=== PATIENT | female | born 1945 | race Caucasian/White ===

== ENCOUNTER 2022-03-28 11:00 | Outpatient (RCR) | payer MEDICARE, SELFPAY | END 2022-03-28 15:42 | disposition home or self-care (01) | LOC: HO.PT 11:00 | PROVIDERS: PCP Internal Medicine; Visit Provider Orthopaedic Surgery | DX: Z96.652 Presence of left artificial knee joint (principal) | CPT/HCPCS: 97110; 97140; 97161; 97530 ==

== ENCOUNTER 2024-05-10 07:23 | Inpatient (IN) | payer MEDICARE, SELFPAY ==
[2024-05-10] VITALS (8 sets, daily range): BP systolic 96–142; BP diastolic 43–82; PULSE 77–96; RESP 16–20; TEMP 36.4–36.8; O2SAT 98–100; BMI 46.1
--- NOTE | 2024-05-10 | ECG_ITS ---
Test Reason : CP Blood Pressure : / mmHG Vent. Rate : 081 BPM Atrial Rate : 081 BPM P-R Int : 198 ms QRS Dur : 102 ms QT Int : 382 ms P-R-T Axes : 070 -06 099 degrees QTc Int : 443 ms Sinus rhythm with frequent Premature ventricular complexes Left ventricular hypertrophy with repolarization abnormality ( R in aVL , [place] product ) Abnormal ECG When compared with ECG of 10-MAY-2024 07:27, Nonspecific T wave abnormality has replaced inverted T waves in Lateral leads Referred By: Michael Prabhakar Electronically Signed By:CARMINA FULTON
--- NOTE | ~2024-05-10 | XR_ITS ---
EXAMINATION: XR CHEST CLINICAL INFORMATION: Dyspnea COMPARISON: None available. TECHNIQUE: Frontal view of the chest was obtained. FINDINGS: Lordotic view. Cardiac and mediastinal silhouette is borderline prominent, accentuated by technique. There is mild peribronchial opacities in bilateral upper lungs. No focal consolidation is otherwise seen. Left costophrenic angle blunting may reflect small effusion. No pneumothorax is seen. XR/XR chest 1V IMPRESSION: Mild peribronchial opacities in bilateral upper lungs could reflect inflammatory infectious process. Possible small left pleural effusion. Electronically signed by: Cameron Yip MD 05/10/2024 08:17 AM EDT
--- NOTE | 2024-05-10 07:00 | CA_ITS ---
Transthoracic Echocardiogram Patient (Last, First, Middle): Melisa Horan, Gender: Female Date of : 1945 Age: 78 Procedure Date: 05/10/2024 Procedure Type: Transthoracic Echocardiogram Location: ER Height: 172.72 cm Weight: 137.44 kg BSA: 2.44 m2 Heart Rate: 88 bpm BP: 108 / 39 mmHg Quality Measurement Specialist: LIBERTY Referring MD: Michael Prabhakar MD Symptoms: CHF, Study Quality: Fair w/Contrast ECG Rhythm: PVCs Conclusions: - Mildly increased left ventricular cavity size. There is severely increased left ventricular wall thickness. The left ventricular systolic function is borderline reduced. The visually estimated ejection fraction is between 45-50%. - There is mild to moderate mitral valve regurgitation. - Moderately elevated right atrial pressure. - There is mild dilatation of the ascending aorta measuring 4.20 cm. Findings Procedure Information Contrast agent, definity, is being given per protocol without apparent complications. Left Ventricle Mildly increased left ventricular cavity size. There is severely increased left ventricular wall thickness. The left ventricular systolic function is borderline reduced. The visually estimated ejection fraction is between 45 50%. Abnormal diastolic function is noted. Elevated filling pressures. Right Ventricle Normal right ventricular cavity size. There is borderline right ventricular systolic function. Atria The left atrium is moderately dilated. The right atrium is normal in size. Aortic Valve A bioprosthetic aortic valve is present. The prosthetic aortic valve appears to be functioning abnormally. Echo findings are consistent with stenosis of the aortic valve prosthesis. May-prosthetic regurgitation is present. The peak aortic velocity is 5.00 m/s with a calculated peak gradient of 100 mmHg. The mean gradient is 71 mmHg. The aortic valve area is 0.63 cm2. There is trace (trivial) aortic valve regurgitation. Mitral Valve There is moderate mitral annular calcification. There is mild to moderate mitral valve regurgitation. There is no mitral valve stenosis. Pulmonic Valve The pulmonic valve is likely normal. There is trace pulmonic valve regurgitation. Tricuspid Valve Normal tricuspid valve structure. There is mild tricuspid valve regurgitation. Tricuspid regurgitation envelope is inadequate for calculation of right ventricular systolic pressure. Moderately elevated right atrial pressure. Great Vessels There is mild dilatation of the ascending aorta measuring 4.20 cm. The visualized portions of the pulmonary artery and branches are normal. Venous The inferior vena cava is dilated and collapses less than 50% with inspiration. Pericardium/Pleural There is no evidence of pericardial effusion. Prior Study Comparison No prior study available for comparison. Measurements 2D Linear Measurements IVSd: 1.53 0.6-0.9/0.6-1.0 cm LVIDd: 5.59 3.9-5.3/4.2-5.9 cm LVIDd Index: 2.29 2.4-3.2/2.2-3.1 cm/m2 LVIDs: 3.66 2.0-3.6 cm LVPWd: 1.41 0.7-1.1 cm LA Diam: 4.60 2.7-3.8/3.0-4.0 cm LAIDs Index: 1.89 1.5-2.3 cm/m2 LV Mass: 463.81 67-162/88-224 g LV Mass Index: 190.09 43-95/49-115 g/m2 LVOT Diam: 2.30 3.0+(-)1.3 cm 2D Systolic Function EF 4C: 39.40 >55% EF 2C: 42.50 >55% EF BiP: 40.20 >55% Mitral Valve MV Pk E: 1.01 MV PK A: 0.66 MV Decel Time: 131.00 E/A: 1.50 E'Lateral: 4.91 E'Medial: 3.50 E/E' Med: 28.90 E/E' Lat: 20.60 PHT: 39.00 MVA PHT: 5.64 Decel Johnson: 7.66 Aortic Valve AoV Pk Paresh: 5.00 AoV Mn Paresh: 3.51 AoV VTI: 1.07 AoV Pk Grad: 100.00 Aov Mn Grad: 71.00 ROSE Cont.VTI: 0.63 LVOT LVOT Pk Paresh: 0.89 LVOT Mn Paresh: 0.65 LVOT VTI: 0.23 LVOT Pk Grad: 3.00 LVOT Mn Grad: 2.00 LVOT Diam: 2.30 LVOT Area: 4.15 Diastolic Function MV Pk E: 1.01 MV Pk A: 0.66 E/A: 1.50 E'Medial: 3.50 E/E' Med: 28.90 E' Laterial: 4.91 E/E' Lat: 20.60 Right Ventricle TAPSE (mm): 22.90 TVS' Paresh: 7.32 Tricuspid Valve TR Pk Paresh: 2.58 TR Pk Grad: 27.00 Great Vessels Aorta Sinus of Valsalva: 3.60 2.0-3.5 cm Ao Asc: 4.20 2.1-3.4 cm Ao Arch: 3.20 Pulmonary Valve PV Pk Paresh: 0.92 Peak PV Grad: 3.00 Updated in Other Vendor System with Status of Final Michael Prabhakar MD electronically signed on 05/10/2024 5:39:13 PM with status of Final
--- NOTE | 2024-05-10 07:31 | ECG_ITS ---
Test Reason : CP/SOB Blood Pressure : / mmHG Vent. Rate : 087 BPM Atrial Rate : 087 BPM P-R Int : 206 ms QRS Dur : 102 ms QT Int : 368 ms P-R-T Axes : 067 -12 116 degrees QTc Int : 442 ms Sinus rhythm with occasional Premature ventricular complexes Left ventricular hypertrophy with repolarization abnormality ( R in aVL , Sokolow-Velasquez , [place] product ) Abnormal ECG When compared with ECG of 30-APR-2007 08:07, Premature ventricular complexes are now Present QRS duration has increased ST now depressed in Inferior leads ST now depressed in Lateral leads Nonspecific T wave abnormality, improved in Inferior leads T wave inversion now evident in Lateral leads Referred By: Jesika King Electronically Signed By:CARMINA FULTON
--- NOTE | 2024-05-10 07:43 | ED.CHESTPAIN ---
HPI - Chest Pain General Chief Complaint: Chest Pain Stated Complaint: BURNING CP SINCE LAST NIGHT PER EMS Time Seen by Provider: 05/10/24 07:24 Source: patient Mode of arrival: ambulatory Limitations: no limitations History of Present Illness ED Provider: RIKI RESENDIZ narrative: 78 yo female with PMH of TAVR 5 years ago at [facility] has failed, PAF afib s/p ablation x 3 on xarelto daily, CHF on furosemide now 40mg BID that was recently increased by her senior field service engineer Jonh, HTN, HLD, new dx in the last few months of liver lesions that are scheduled for biopsy at [facility]. Has had MRI done and no other primary source found per patient and family. Last ECHO per family in March EF 50-55%. She has had increased orthopnea sleeping in recliner, LEDESMA, fatigue, moderate leg swelling for 3+ months with worsening chest burning that seems to have gotten much worse for the last week. She is compliant with all medications. No cough or fever reported. This AM the burning chest pain woke her from sleep and she could not take it so she called 911. 5 years ago when she had her first TAVR cardiac cath was clear. She was told by [facility] TAVR provider that they think the first one failed due to inflammation. No plans to re-do the TAVR at this time until they find out if liver lesions are treatable and what plan is going forward. 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 complaint: chest pain Onset (ago): month(s) (3) Timing of current episode: episodic Prior episodes: Yes Onset: during rest and during exertion Pain location: substernal Pain radiation: none Severity: moderate Quality: burning Relieving factors: nothing Exacerbating factors: exertion and movement Context: other Associated symptoms: dyspnea and leg swelling Treatment prior to arrival: none Related Data Allergies Allergy/AdvReac Type Severity Reaction Status Date / Time iron Allergy Unknown rash, hives Verified 05/10/24 07:33 penicillin V Allergy Unknown evere Verified 05/10/24 08:13 diarrhea levofloxacin [Levaquin] AdvReac Unknown tendon Verified 11/21/18 00:00 pain, swelling feet and ankles Review of Systems Review of Systems: Constitutional : No Fever, No Chills ENT/Mouth : No sore throat, No Rhinorrhea, No Swallowing Difficulty Eyes: No Eye Pain, No Swelling, No Redness Cardiovascular : pos Chest Pain, positive SOB, pos Orthopnea, positive Edema Respiratory : No Cough, No Sputum, No Wheezing, positive dyspnea Gastrointestinal : pos Nausea, No Vomiting, No Diarrhea, No abdominal Pain, No Hematochezia, No Melena Genitourinary : No Dysuria, No Urinary Frequency, No Hematuria Musculoskeletal : No joint pain, No Myalgias Skin : No Skin Lesions, No rash Neuro : No Weakness, No Numbness, No Dizziness, No Headache Psych : No Anxiety/Panic, No Depression All other systems reviewed and are negative [facility] Past Medical History Attestation statement: The following information was validated with the patient. Medical History Liver lesion Hyperlipidemia HTN (hypertension) CHF (congestive heart failure) PAF (paroxysmal atrial fibrillation) Aortic stenosis Surgical History S/P TAVR (transcatheter aortic valve replacement) Social History Social History (Updated 05/10/24 @ 08:12 by Jesika King DO) Patient Tobacco Use Status: Never used Tobacco Physical Exam Vital Signs: Vital Signs: Last Vital Signs Pulse 91 05/10/24 09:39 Resp 16 05/10/24 09:39 BP 109/49 L 05/10/24 09:39 Pulse Ox 98 05/10/24 09:39 O2 Del Method Nasal Cannula 05/10/24 09:39 O2 Flow Rate 2 05/10/24 09:39 BMI result Body Mass Index 46.1 Appearance: Alert. Oriented X3. No acute distress. Eyes: Pupils equal, round and reactive to light. ENT: Pharynx normal. Neck: Normal inspection. Neck supple. CVS: Normal heart rate and rhythm. Pulses normal. Respiratory: No respiratory distress. Breath sounds rales both bases Abdomen: Soft and nontender. Skin: Skin warm and dry. pale skin color. Normal skin turgor. Extremities: 2+ bilateral symmetric lower extremity edema. Neuro: Oriented X 3. No motor deficit. No sensory deficit. Course Course Course Narrative: pain resolved after medications Reevaluation(s) Reevaluation #1: IV lasix 40mg, hold lisinopril, repeat troponin admit Aki Reevaluation #2: repeat trop flat Medications Administered Discontinued Medications Generic Name Dose Route Start Last Admin Trade Name Christie PRN Reason Stop Dose Admin Famotidine 20 mg 05/10/24 07:59 05/10/24 08:16 Famotidine/Pf 20 Mg/2 Ml Vial IVPUSH 05/10/24 08:00 20 mg ONCE ONE Administration Fentanyl 25 mcg 05/10/24 07:59 05/10/24 08:15 Fentanyl Citrate/Pf 100 Mcg/2 Ml Vial IVPUSH 05/10/24 08:00 25 mcg ONCE ONE Administration Protocol Furosemide 40 mg 05/10/24 09:14 05/10/24 09:37 Furosemide 40 Mg/4 Ml Vial IVPUSH 05/10/24 09:15 40 mg STAT STA Administration Protocol Ondansetron HCl 4 mg 05/10/24 07:59 05/10/24 08:13 Ondansetron Hcl 4 Mg/2 Ml Vial IVPUSH 05/10/24 08:00 4 mg ONCE ONE Administration Medical Decision Making Medical Decision Making [facility] Narrative: 78 yo female with PMH of TAVR 5 years ago at [facility] has failed, PAF afib s/p ablation x 3 on xarelto daily, CHF on furosemide now 40mg BID that was recently increased by her senior field service engineer Jonh, HTN, HLD, new dx in the last few months of liver lesions now here today with burning epigastric and chest pain with associated leg edema, orthopnea, LEDESMA with a known failing TAVR that cannot be surgically treated. She is compliant with all of her medications and has not missed any lasix or xarelto. At this time will need EKG, troponin, BNP, CXR, records from [place] will start on pepcid, IV zofran and low dose fentanyl for pain - pressures are slightly soft and given the failed TAVR will hold off nitro. Differential Diagnosis Differential Diagnoses: The differential diagnosis associated with the presentation includes CHF GERD atypical chest pain hepatic congestion Admission/Observation Consideration of admission/observation: Escalation of care including admission/observation considered Lab Data [facility] Lab Attestation statement: I reviewed the patient's lab results. 05/10/24 07:45 05/10/24 07:45 Labs: Lab Results 0805/10/24 05/10/24 Range/Units 07:45 07:54 09:44 WBC 13.2 H (4.8-10.8) X10*3/uL RBC 3.74 L (4.20-5.50) X10*6/uL Hgb 10.9 L (12.0-16.0) g/dl Hct 34.6 L (37.0-47.0) % MCV 92.5 (80.0-98.0) fL MCH 29.1 (27.0-33.0) pg MCHC 31.5 (31.0-35.0) g/dl RDW 14.7 (11.0-16.0) % Plt Count 126 L (160-400) X10*3/uL MPV 11.8 (9.4-12.3) fL Immature Gran % (Auto) 0.4 (0.0-0.4) % Neut % (Auto) 74.3 H (45-73) % Lymph % (Auto) 16.6 L (20-40) % [place] % (Auto) 8.1 (2-11) % Eos % (Auto) 0.3 (0-4) % Baso % (Auto) 0.3 (0-2) % Lymph # (Auto) 2.2 (1.2-4.9) X10*3/uL [place] # (Auto) 1.1 (0.1-1.2) X10*3/uL Eos # (Auto) 0.0 (0.0-0.4) X10*3/uL Baso # (Auto) 0.0 (0.0-0.2) X10*3/uL Abs Immat Gran (auto) 0.05 H (0.00-0.03) X10*3/uL Absolute Neuts (auto) 9.8 H (2.0-8.3) x10*3/uL Absolute Nucleated RBC 0.000 (0.0-0.012) X10*3/uL Nucleated RBC % (auto) 0.0 (0.0-0.2) /100WBC PT 22.9 H (11.1-13.3) SEC INR 1.9 H (0.9-1.1) Sodium 141 (135-145) mmol/L Potassium 4.4 (3.3-5.1) mmol/L Chloride 108 (96-108) mmol/L Carbon Dioxide 21 L (22-29) mmol/L Anion Gap 16 (12-20) BUN 61 H (9-16) mg/dL Creatinine 2.28 H (0.5-1.4) mg/dL Estim Creat Clear Calc 30.4 Estimated GFR 21 Random Glucose 149 H (60-115) mg/dL Calcium 9.9 (8.4-10.2) mg/dL Magnesium 2.3 (1.6-2.6) mg/dL Total Bilirubin 0.7 (0.0-1.0) mg/dL Direct Bilirubin 0.2 (0.0-0.5) mg/dL AST 29 (5-31) U/L ALT 11 (0-31) U/L Alkaline Phosphatase 114 (39-117) U/L Troponin I High Sens 161.2 H* 165.1 H* (<3.5-17.0) ng/L B-Natriuretic Peptide 2801 H (<100) pg/mL Total Protein 6.9 (6.5-8.0) g/dL Albumin 3.7 (3.5-5.0) g/dL Lipase 20 (8-78) U/L Influenza Type A (PCR) NEGATIVE (Negative) Influenza Type B (PCR) NEGATIVE (Negative) RSV RNA Qual (PCR) NEGATIVE (Negative) SARS-CoV-2 RNA (RT-PCR) NEGATIVE (Negative) Independent Interpretation I performed an independent interpretation of an: EKG and Plain X-Ray Interpretation: Rate: 87 Rhythm: NSR 1st degree AVB [place]: left Normal P waves. 1st degree AVB Normal QRS complex. ST T wave : inverted I and aVL, slight ST depressions II, V4-V6 qTC: 442 prior studies: 2007 LVH noted with strain now, ST depressions lateral leads more evident The study has been interpreted contemporaneously by me. . Radiology Impression Discussion of test interpretation with radiology: I have reviewed the radiologist's reading. Independent Historian Clinical information obtained from an independent historian. History obtained from or confirmed by: EMS and Other (family) External Record Review External record reviewed: Outpatient record Discharge Plan Discharge Clinical Impression: VIOLET (acute kidney injury) Chest pain Qualifiers: Chest pain type: precordial pain Qualified Code(s): R07.2 - Precordial pain CHF (congestive heart failure) Qualifiers: Heart failure type: systolic Heart failure chronicity: acute on chronic Qualified Code(s): I50.23 - Acute on chronic systolic (congestive) heart failure Patient Disposition: Admitted As Inpatient Print Language: [place]an
[2024-05-10 07:50] LABS: MANUAL DIFF FLAG NO
[2024-05-10 07:53] LABS: Basophils Percent Auto 0.3 % (0-2); Eosinophils Percent Auto 0.3 % (0-4); Hematocrit 34.6 % (37.0-47.0); Hemoglobin 10.9 g/dl (12.0-16.0); Imm Gran Abs Auto 0.05 X10*3/uL (0.00-0.03); Imm Gran Pct Auto 0.4 % (0.0-0.4); Lymphocytes Absolute Auto 2.2 X10*3/uL (1.2-4.9); Lymphocytes Percent Auto 16.6 % (20-40); Mean Corpuscular HGB Conc 31.5 g/dl (31.0-35.0); Mean Corpuscular Hemoglobin 29.1 pg (27.0-33.0); Mean Corpuscular Volume 92.5 fL (80.0-98.0); Mean Platelet Volume 11.8 fL (9.4-12.3); Monocytes Absolute Auto 1.1 X10*3/uL (0.1-1.2); Monocytes Percent Auto 8.1 % (2-11); Neutrophils Absolute Auto 9.8 x10*3/uL (2.0-8.3); Neutrophils Percent Auto 74.3 % (45-73); Platelet Count 126 X10*3/uL (160-400); Red Blood Count 3.74 X10*6/uL (4.20-5.50); Red Cell Distribution Width 14.7 % (11.0-16.0); White Blood Count 13.2 X10*3/uL (4.8-10.8)
[2024-05-10 07:59] LABS: INTERNATIONAL NORM RATIO 1.9 (0.9-1.1); Prothrombin Time 22.9 SEC (11.1-13.3)
[2024-05-10 08:11] LABS: Alanine Aminotransferase 11 U/L (0-31); Albumin Level 3.7 g/dL (3.5-5.0); Alkaline Phosphatase 114 U/L (39-117); Anion Gap 16 (12-20); Aspartate Amino Transferase 29 U/L (5-31); Bilirubin Direct 0.2 mg/dL (0.0-0.5); Bilirubin Total 0.7 mg/dL (0.0-1.0); Blood Urea Nitrogen 61 mg/dL (9-16); Calcium 9.9 mg/dL (8.4-10.2); Carbon Dioxide 21 mmol/L (22-29); Chloride 108 mmol/L (96-108); Creatinine Clr Calc Pharmacy 30.4; Estimated Glomerular Filt Rate 21; Glucose Random 149 mg/dL (60-115); Lipase 20 U/L (8-78); Magnesium 2.3 mg/dL (1.6-2.6); Potassium 4.4 mmol/L (3.3-5.1); Sodium 141 mmol/L (135-145); Total Protein 6.9 g/dL (6.5-8.0)
[2024-05-10] MEDS: ondansetron HCL 4 MG/2 ML VIAL IVPUSH (08:13)
[2024-05-10] MEDS: fentaNYL citrate/PF 100 MCG/2 ML VIAL 25 MCG IVPUSH (08:15)
[2024-05-10] MEDS: Famotidine/PF 20 MG/2 ML VIAL IVPUSH (08:16)
[2024-05-10 08:17] LABS: B Type Natriuretic Peptide 2801 pg/mL (<100)
[2024-05-10 08:38] LABS: Troponin-I High Sensitivity 161.2 ng/L (<3.5-17.0)
[2024-05-10 08:48] LABS: Influenza A PCR NEGATIVE (Negative); Influenza B PCR NEGATIVE (Negative); Resp Syncy Virus RNA Qual PCR NEGATIVE (Negative); SARS COV2 PCR INHOUSE NEGATIVE (Negative)
[2024-05-10] MEDS: Furosemide 40 MG/4 ML VIAL IVPUSH (09:37)
[2024-05-10 10:20] LABS: Troponin-I High Sensitivity 165.1 ng/L (<3.5-17.0)
--- NOTE | 2024-05-10 10:34 | P.CONCA_ITS ---
History of Present Illness History of Present Illness Date of Service: 05/10/24 Requesting physician: Jesika King Chief complaint: Burning CP, SOB Narrative: [age] year female with complex history in the past with previous transcatheter aortic valve replacement at [facility] in 2018 for aortic valve stenosis. We currently do not have any records and this is all by patient's report. More recently she has been developing valve degeneration and dysfunction and was sent back to [facility]. She has been following with Dr. Jessica. She said she had workup started for LV and valve TAVR but apparently had abdominal CT scan which picked up some liver lesions. She was due to get biopsy on this coming Sunday. She said she has been progressively more short of breath and also discuss this with her land checker Dr. Borja who advised her to increase the Lasix to 40 mg twice a day. Despite doing that she continued to have worsening shortness of breath and also developed some burning chest discomfort last evening which brought her to the emergency department. She continues to have some burning discomfort in the chest. She said before her 1st valve procedure she had chest discomfort which was different from this but that was the main reason she had further workup done and valve replaced. Clearly in heart failure. Creatinine is 2.28 with BUN of 61. She is saying she did not have any kidney abnormalities previously. Troponin I 165 and 161. BNP 2801. [facility] Past Medical History Medical History Liver lesion Hyperlipidemia HTN (hypertension) CHF (congestive heart failure) PAF (paroxysmal atrial fibrillation) Aortic stenosis Surgical History Surgical History S/P TAVR (transcatheter aortic valve replacement) Social History Social History (Updated 05/10/24 @ 08:12 by Jesika King DO) Patient Tobacco Use Status: Never used Tobacco Smoked in Last 30 Days: No Use of substances other than those prescribed or required for medical reasons: No Advance Directives: Yes Advance Directives Information Provided: Yes Advance Directives on File: No Meds Allergies Allergy/AdvReac Type Severity Reaction Status Date / Time iron Allergy Unknown rash, hives Verified 05/10/24 07:33 penicillin V Allergy Unknown evere Verified 05/10/24 08:13 diarrhea levofloxacin [Levaquin] AdvReac Unknown tendon Verified 11/21/18 00:00 pain, swelling feet and ankles Physical Exam 2 Vital Signs: Vital Signs: Last Vital Signs Pulse 91 05/10/24 09:39 Resp 16 05/10/24 09:39 BP 109/49 L 05/10/24 09:39 Pulse Ox 98 05/10/24 09:39 O2 Del Method Nasal Cannula 05/10/24 09:39 O2 Flow Rate 2 05/10/24 09:39 BMI result Body Mass Index 46.1 GENERAL APPEARANCE: Short of breath with talking. NECK: no carotid bruit, + jugular venous distention. SKIN: no suspicious lesions, warm and dry. HEART: Ejection systolic murmur no 2nd heart sound, regular rate and rhythm. LUNGS: Bilateral crackles. ABDOMEN: soft, nontender. EXTREMITIES: 1 to 2+ edema. PERIPHERAL PULSES: equal. NEUROLOGIC: No gross deficits, AAO X 3 Objective Labs and Meds 05/10/24 07:45 05/10/24 07:45 Lab results: Laboratory Results - last 24 hr 05/10/24 05/10/24 05/10/24 07:45 07:54 09:44 WBC 13.2 H RBC 3.74 L Hgb 10.9 L Hct 34.6 L MCV 92.5 MCH 29.1 MCHC 31.5 RDW 14.7 Plt Count 126 L MPV 11.8 Immature Gran % (Auto) 0.4 Neut % (Auto) 74.3 H Lymph % (Auto) 16.6 L [place] % (Auto) 8.1 Eos % (Auto) 0.3 Baso % (Auto) 0.3 Lymph # (Auto) 2.2 [place] # (Auto) 1.1 Eos # (Auto) 0.0 Baso # (Auto) 0.0 Abs Immat Gran (auto) 0.05 H Absolute Neuts (auto) 9.8 H Absolute Nucleated RBC 0.000 Nucleated RBC % (auto) 0.0 PT 22.9 H INR 1.9 H Sodium 141 Potassium 4.4 Chloride 108 Carbon Dioxide 21 L Anion Gap 16 BUN 61 H Creatinine 2.28 H Estim Creat Clear Calc 30.4 Estimated GFR 21 Random Glucose 149 H Calcium 9.9 Magnesium 2.3 Total Bilirubin 0.7 Direct Bilirubin 0.2 AST 29 ALT 11 Alkaline Phosphatase 114 Troponin I High Sens 161.2 H* 165.1 H* B-Natriuretic Peptide 2801 H Total Protein 6.9 Albumin 3.7 Lipase 20 Influenza Type A (PCR) NEGATIVE Influenza Type B (PCR) NEGATIVE RSV RNA Qual (PCR) NEGATIVE SARS-CoV-2 RNA (RT-PCR) NEGATIVE Imaging Radiologist's impression: Impressions Chest X-Ray 05/10/24 07:36 IMPRESSION: Mild peribronchial opacities in bilateral upper lungs could reflect inflammatory infectious process. Possible small left pleural effusion. Electronically signed by: Cameron Yip MD 05/10/2024 08:17 AM EDT RP Assessment and Plan (1) CHF (congestive heart failure): Qualifiers: Heart failure chronicity: acute on chronic Heart failure type: systolic Qualified Code(s): I50.23 - Acute on chronic systolic (congestive) heart failure Status: Acute (2) Prosthetic aortic valve stenosis: Status: Acute (3) VIOLET (acute kidney injury): Status: Acute Plan 78-year-old female presenting for shortness of breath and indigestion like chest discomfort. EKGs showing sinus rhythm 87 beats per minute, left ventricular hypertrophy with QRS widening and lateral ST depressions likely due to strain versus ischemia. She has known transcatheter aortic valve placement in the past and currently has valve degeneration and is being considered for valve and valve TAVR at [facility]. She was diagnosed with liver lesions and was told that till she gets biopsy she will not be considered for further workup/replacement of valve. She is here clearly with congestive heart failure. Volume overloaded and I think we should diurese her with 40 mg IV b.i.d. Lasix. Stop the lisinopril. Adjust medications based on creatinine clearance. She has VIOLET currently which can be due to cardiorenal physiology but we need to see how she responds to diuresis. The patient was told at [facility] that she has biopsy she will not be consider for any valve replacement. I think transferring her to [facility] may not change urgent management currently. I would diurese and optimize her for heart failure and then we can have reassessment at [facility]. She also is due to get a biopsy on Sunday which will depend on how quickly she recovers from this issue because she will have to lay flat for the procedure. This is also supposed to happen in [place]. Thank you for allowing me to participate in the care of your patient. Please feel free to contact me if you have any questions. Procedures Date of Service Date of Service: 05/10/24
--- NOTE | 2024-05-10 11:21 | P.HPHOSP_ITS ---
History of Present Illness Date of Service: 05/10/24 Attending physician on admission: Ruben Hinkle Chief Complaint: SOB, chest pain Pt is a 78-year-old female with a PMH significant for?HFpEF EF 50-55%, TAVR 5 years ago at [facility] and [facility] now failing, paroxysmal AFib s/p ablation x3 on Xarelto, HLD, HTN, and GERD who presents to the ED for evaluation of substernal burning chest pain that woker her from sleep this morning. Pt reports she has been experiencing symptoms intermittently for the past week, relieved by Pepto-Bismol. Patient describes the pain has sharp and burning in nature, substernal, and nonradiating. Denies chest pressure or palpitations. No nausea, vomiting, or abdominal pain. Patient also reports has been experiencing progressive shortness a breath and lower leg edema since December of this year. Normally ambulates in her home without assistance though uses a cane when she goes out. However patient reports most recent time she went out she needed to be transported with a wheelchair. Recently her person investigator Dr. Borja increased her Lasix from 40 mg daily to 40 mg b.i.d., but patient has received no relief this medication change. Also endorses dry cough. Of note, patient is currently undergoing workup at [facility] for TAVR replacement. Apparently routine CT scan of abdomen and pelvis found liver lesions, and patient is set to receive a liver biopsy at [facility] on Sunday of next week. Cardiology is requesting liver lesion biopsy and workup prior to scheduling TAVR. Per patient, last echo was done in March and showed EF of 50- 55%. In the ED pt with elevated heart rate of 91, and soft BP as low as 106/51. Labs were significant for leukocytosis 13.2, H&H 10.9/34.6, BUN 61, creatinine 2.28, initial troponin 161.2 with repeat flat and 165.1, and BNP 2801. Tested negative for flu, COVID, RSV. CXR showed mild peribronchial opacities in bilateral upper lungs possibly inflammatory versus infectious process as well as small left pleural effusion. Initial EKG demonstrated sinus rhythm with occasional PVCs and slight ST depressions in lateral and inferior leads. Repeat EKG with improved ST depressions. Pt was treated with ondansetron, fentanyl, Protonix, and furosemide. Pt will be admitted to the hospital for treatment and further evaluation of acute HFpEF exacerbation. Review of Systems 2 Review of Systems: Intermittent substernal sharp, burning chest pain Shortness a breath, LEDESMA LLE Non-productive cough No chest pressure Denies fever, chills, nausea, vomiting No abdominal pain PMFSH Medical History Liver lesion Hyperlipidemia HTN (hypertension) CHF (congestive heart failure) PAF (paroxysmal atrial fibrillation) Aortic stenosis Surgical History S/P TAVR (transcatheter aortic valve replacement) Social History Patient Tobacco Use Status: Never used Tobacco Smoked in Last 30 Days: No Use of substances other than those prescribed or required for medical reasons: No Advance Directives: Yes Advance Directives Information Provided: Yes Advance Directives on File: No Nutrition Risks: No Nutritional Risk Meds Allergies Allergy/AdvReac Type Severity Reaction Status Date / Time iron Allergy Unknown rash, hives Verified 05/10/24 07:33 penicillin V Allergy Unknown evere Verified 05/10/24 08:13 diarrhea levofloxacin [Levaquin] AdvReac Unknown tendon Verified 11/21/18 00:00 pain, swelling feet and ankles Home Medications ?Medication ?Instructions ?Recorded ?Confirmed ?Last Taken ?Type acetaminophen 325 mg tablet 650 mg PO Q6H PRN Pain 05/10/24 05/10/24 Unknown History (Tylenol) atorvastatin 40 mg tablet 40 mg PO DAILY 05/10/24 05/10/24 05/09/24 History bismuth subsalicylate 525 mg/15 mL 525 mg PO Q30M PRN Stomach Upset 05/10/24 05/10/24 Unknown History oral suspension (Pepto-Bismol Max St) cholecalciferol (vitamin D3) 25 25 mcg PO DAILY 05/10/24 05/10/24 05/09/24 History mcg (1,000 unit) tablet (Vitamin D3) cyanocobalamin (vitamin B-12) 1,000 mcg PO DAILY 05/10/24 05/10/24 05/09/24 History 1,000 mcg tablet furosemide 20 mg tablet 40 mg PO BID 05/10/24 05/10/24 05/09/24 History lisinopril 40 mg tablet 40 mg PO DAILY 05/10/24 05/10/24 05/09/24 History metoprolol tartrate 25 mg tablet 25 mg PO BEDTIME 05/10/24 05/10/24 05/09/24 History metoprolol tartrate 25 mg tablet 50 mg PO DAILY 05/10/24 05/10/24 05/09/24 History ondansetron 4 mg disintegrating 4 mg PO Q8H PRN nausea 05/10/24 05/10/24 Unknown History tablet rivaroxaban 20 mg tablet (Xarelto) 20 mg PO DAILY@1700 05/10/24 05/10/24 05/09/24 History vit C 250 mg-vit E 90 mg-zinc 40 1 tab PO BID 05/10/24 05/10/24 05/09/24 History mg-copper 1 [id number] capsule (PreserVision AREDS-2) Physical Exam 2 Vital Signs and Narrative: Vital Signs: Last Vital Signs Pulse 91 05/10/24 09:39 Resp 16 05/10/24 09:39 BP 109/49 L 05/10/24 09:39 Pulse Ox 98 05/10/24 09:39 O2 Del Method Nasal Cannula 05/10/24 09:39 O2 Flow Rate 2 05/10/24 09:39 BMI result Body Mass Index 46.1 Constitutional: Alert, in no acute distress. Mental Status: Oriented to person, place and time. Eyes: Pupils are equal, round, and reactive to light. Ear, Nose, and Throat: Oropharynx clear, mucous membranes moist. Ears and nose without deformities. Trachea midline. Respiratory: Clear to auscultation bilaterally. No wheezing, rales, or rhonchi. Cardiovascular: S1, no S2. Regular rate and rhythm. Murmur. Gastrointestinal: Abdomen soft, non-tender, non-distended. Normal bowel sounds. +JVD. Neurologic: Cranial nerves II-XII are grossly intact bilaterally. No focal neurological deficits. Moves all extremities spontaneously. Skin: Warm, dry. Extremities: 2+ bilateral pitting edema. Psychiatric: Normal mood and affect. Results Labs 05/11/24 04:46 05/11/24 04:46 Labs: Laboratory Results - last 24 hr 05/10/24 05/10/24 05/10/24 07:45 07:54 09:44 MCV 92.5 MCH 29.1 MCHC 31.5 RDW 14.7 Plt Count 126 L MPV 11.8 Immature Gran % (Auto) 0.4 Neut % (Auto) 74.3 H Lymph % (Auto) 16.6 L Grainger % (Auto) 8.1 Eos % (Auto) 0.3 Baso % (Auto) 0.3 Lymph # (Auto) 2.2 Grainger # (Auto) 1.1 Eos # (Auto) 0.0 Baso # (Auto) 0.0 Abs Immat Gran (auto) 0.05 H Absolute Neuts (auto) 9.8 H Absolute Nucleated RBC 0.000 Nucleated RBC % (auto) 0.0 PT 22.9 H INR 1.9 H Anion Gap 16 Estim Creat Clear Calc 30.4 Estimated GFR 21 Random Glucose 149 H Calcium 9.9 Magnesium 2.3 Total Bilirubin 0.7 Direct Bilirubin 0.2 AST 29 ALT 11 Alkaline Phosphatase 114 Troponin I High Sens 161.2 H* 165.1 H* B-Natriuretic Peptide 2801 H Total Protein 6.9 Albumin 3.7 Lipase 20 Influenza Type A (PCR) NEGATIVE Influenza Type B (PCR) NEGATIVE RSV RNA Qual (PCR) NEGATIVE SARS-CoV-2 RNA (RT-PCR) NEGATIVE Imaging Radiologist's Impressions: Impressions Chest X-Ray 05/10/24 07:36 IMPRESSION: Mild peribronchial opacities in bilateral upper lungs could reflect inflammatory infectious process. Possible small left pleural effusion. Electronically signed by: Cameron Yip MD 05/10/2024 08:17 AM EDT Assessment and Plan (1) CHF (congestive heart failure): Qualifiers: Heart failure chronicity: acute on chronic Heart failure type: systolic Qualified Code(s): I50.23 - Acute on chronic systolic (congestive) heart failure Status: Acute Plan Pt is a 78-year-old female with a PMH significant for?HFpEF EF 50-55%, TAVR 5 years ago at [facility] now failing, paroxysmal AFib s/p ablation x3 on Xarelto, HLD, HTN, and GERD who presents to the ED for evaluation of substernal burning chest pain that woker her from sleep this morning. Pt was treated with ondansetron, fentanyl, Protonix, and furosemide. Pt will be admitted to the hospital for treatment and further evaluation of acute HFpEF exacerbation. HFpEF with acute decompensation Pt with increased SOB, LEDESMA, LLE, elevated BNP, pleural effusions on CXR, JVD Recently increased home Lasix to 40 mg b.i.d. to no effect Lasix 40 mg IV b.i.d. Follow Mag chante, I/O Daily weights, low-salt diet Echocardiogram Cardiology consult Monitor on telemetry VIOLET Creatinine 2.28 at time of presentation Likely cardiorenal Hold lisinopril Treat as above Follow renal function Elevated troponins Initial troponin 161.2 with repeat flat at 165.[address] depressions in lateral leads Patient denies chest pressure Most likely type 2 in the setting of increased demand Monitor on telemetry Chest pain Substernal, sharp and burning in nature, intermittent x1 week Initially relieved by Pepto-Bismol Pt given Protonix IV in the ED Will switch to p.o. famotidine 20mg bid HTN Hold lisinopril due to soft BP and VIOLET Leukocytosis WBCs 13.2 at time of presentation Likely reactionary, no sepsis No clear source of infection: Denies productive cough, no fever, chills, N/V/D or abd pain Follow CBC Paroxysmal AFib Continue metoprolol, Xarelto HLD Continue statin Liver lesions Scheduled for biopsy at [facility] in [place] on Sunday Aortic stenosis s/p TAVR in 2018 that has since failed Being worked up at [facility] for possible replacement DNR/DNI, verified with pt Attending:?Dr. Hinkle DVT Prophylaxis: On Xarelto Pt will require a hospitalization of at least two nights for treatment and further evaluation of acute CHF exacerbation that will require aggressive IV diuresing, close monitoring of labs and cardiac function, and specialist consultation with Cardiology. Quality Stroke Does the patient have a stroke diagnosis?: No VTE Prior VTE?: No VTE Risk Level:: Medical - moderate - high VTE Device Contraindication: Treatment Not Indicated VTE Drug Contraindication: N/A - Med Ordered
--- NOTE | 2024-05-10 11:45 | PC.NURSE ---
pt to ED from Home. reporting on and off epigastric chest pain, non radiating for about 1 week. pt has been taking pepto at home with relief, but today she said the pain woke her up and is not relieved by pepto or tums. pt has an replaced aortic valve and she says that is failing and she needs a new one. Pt is short of breath, satts good high 90s but pt feels like she cant get a good breath in 20g IV left AC. medicated per NOV.
--- NOTE | 2024-05-10 12:02 | PHA.MEDREC ---
Addendum entered by Xiao Fisher RPh 05/10/24 12:48: [facility] reviewed Original Note: Pharmacy Consult ? Medication Reconciliation Pharmacy has completed the medication reconciliation.
[2024-05-10] MEDS: Cholecalciferol (Vitamin D3) 25 MCG TABLET PO (14:26)
[2024-05-10] MEDS: Cyanocobalamin (Vitamin B-12) 1,000 MCG TABLET 1000 MCG PO (14:26)
--- NOTE | 2024-05-10 17:11 | PC.NURSE ---
Patient's Xarelto not stocked in pyxis, pharmacy called will send down dose.
[2024-05-10] MEDS: Rivaroxaban 15 MG TABLET PO (17:19)
[2024-05-10] MEDS: 0.9 % Sodium Chloride Flush 3 ML SYRINGE IVFLUSH (17:19)
--- NOTE | 2024-05-10 18:12 | PC.NURSE ---
pts coccyx area red. one small area on right buttocks has red abrasion, not bleeding but open. about 1/2 cm wide
--- NOTE | 2024-05-10 18:25 | PC.NURSE ---
per SUYAPA Lares, hold lasix. Also verbal order to hold tonights metoprolol.
--- NOTE | 2024-05-10 20:02 | MHC.EDTECH ---
This tech took over care of patient at 1900,hourly rounds and vitals completed,patient was placed in hospital at this time for comfort,family at bedside and call restrepo in reach
[2024-05-10] MEDS: Famotidine 20 MG TABLET PO (20:13)
[2024-05-10] MEDS: Melatonin 3 MG TABLET 6 MG PO (21:21)
--- NOTE | 2024-05-10 22:21 | MHC.EDTECH ---
Hourly rounds completed,patient was incont. of a large amount of urine,koffi-care given,new pure-wick applied,draining at this time,call restrepo in reach
[2024-05-11] VITALS (23 sets, daily range): BP systolic 72–108; BP diastolic 37–71; PULSE 68–100; RESP 16–24; TEMP 36.4–37.2; O2SAT 93–98
[2024-05-11] MEDS: Acetaminophen 325 MG TABLET 650 MG PO (02:58)
[2024-05-11 04:57] LABS: Hemoglobin 9.8 g/dl (12.0-16.0); Mean Corpuscular HGB Conc 30.6 g/dl (31.0-35.0); Mean Corpuscular Hemoglobin 28.4 pg (27.0-33.0); Mean Corpuscular Volume 92.8 fL (80.0-98.0); Mean Platelet Volume 11.9 fL (9.4-12.3); Platelet Count 113 X10*3/uL (160-400); Red Blood Count 3.45 X10*6/uL (4.20-5.50); Red Cell Distribution Width 14.8 % (11.0-16.0); White Blood Count 11.7 X10*3/uL (4.8-10.8)
[2024-05-11 05:18] LABS: Anion Gap 17 (12-20); Blood Urea Nitrogen 59 mg/dL (9-16); Calcium 9.4 mg/dL (8.4-10.2); Carbon Dioxide 22 mmol/L (22-29); Chloride 108 mmol/L (96-108); Estimated Glomerular Filt Rate 29; Glucose Random 112 mg/dL (60-115); Magnesium 2.3 mg/dL (1.6-2.6); Potassium 4.9 mmol/L (3.3-5.1); Sodium 142 mmol/L (135-145)
[2024-05-11] MEDS: Metoprolol Tartrate 50 MG TABLET PO (09:07)
[2024-05-11] MEDS: Cholecalciferol (Vitamin D3) 25 MCG TABLET PO (09:07)
[2024-05-11] MEDS: Furosemide 40 MG/4 ML VIAL IVPUSH (09:08)
[2024-05-11] MEDS: Atorvastatin Calcium 40 MG TABLET PO (09:08)
[2024-05-11] MEDS: Cyanocobalamin (Vitamin B-12) 1,000 MCG TABLET 1000 MCG PO (09:08)
[2024-05-11] MEDS: Famotidine 20 MG TABLET PO ×2 (09:08→18:02)
--- NOTE | 2024-05-11 09:26 | HO.PM.IMPN ---
Subjective Subjective Date of Service: 05/11/24 Interval History: Still quite short of breath with orthopnea. No chest pain. Review of Systems Review of Systems: Yes all other systems are reviewed and are negative Physical Exam Vital Signs: Vital Signs: Last Vital Signs Temp 98.2 F 05/10/24 19:54 Pulse 83 05/11/24 09:07 Resp 18 05/10/24 19:54 BP 108/66 05/11/24 09:08 Pulse Ox 98 05/10/24 19:54 O2 Del Method Nasal Cannula 05/10/24 19:54 O2 Flow Rate 2 05/10/24 19:54 BMI result Body Mass Index 46.1 Gen: slightly tachypneic HEENT: sclera anicteric, moist mucus membranes Neck: supple, JVD present Lungs: diminished bilaterally Heart: regular rate and rhythm, 2/6 murmur at base Abd: soft, non-tender, non-distended, obese Ext: 1+ BLE edema Skin: warm/well-perfused Neuro: alert and oriented x3, no focal findings Psych: appropriate affect Objective Data Active Medications Acetaminophen (Acetaminophen 325 Mg Tablet) 650 mg PO Q6H PRN PRN Reason: Pain, Mild (Pain Scale 1-3), fever or headache Last Admin: 05/11/24 02:58 Dose: 650 mg Documented By: SANDRA Atorvastatin Calcium (Atorvastatin Calcium 40 Mg Tablet) 40 mg PO DAILY [facility] Last Admin: 05/11/24 09:08 Dose: 40 mg Documented By: YA Benzonatate (Benzonatate 100 Mg Capsule) 100 mg PO TID PRN PRN Reason: Cough Calcium Carbonate (Calcium Carbonate 750 Mg Tab.Chew) 750 mg PO Q4H PRN PRN Reason: Heartburn Cyanocobalamin (Cyanocobalamin (Vitamin B-12) 1,000 Mcg Tablet) 1,000 mcg PO DAILY [facility] Last Admin: 05/11/24 09:08 Dose: 1,000 mcg Documented By: YA Famotidine (Famotidine 20 Mg Tablet) 20 mg PO BID [facility] Last Admin: 05/11/24 09:08 Dose: 20 mg Documented By: YA Furosemide (Furosemide 40 Mg/4 Ml Vial) 40 mg IVPUSH BID@0900,1800 [facility]; Protocol Last Admin: 05/11/24 09:08 Dose: 40 mg Documented By: YA Magnesium Hydroxide (Milk Of Magnesia 30 Ml Oral.Susp) 30 ml PO DAILY PRN PRN Reason: Constipation Melatonin (Melatonin 3 Mg Tablet) 6 mg PO BEDTIME PRN PRN Reason: Insomnia Last Admin: 05/10/24 21:21 Dose: 6 mg Documented By: SANDRA Metoprolol Tartrate (Metoprolol Tartrate 25 Mg Tablet) 25 mg PO BEDTIME [facility]; Protocol Last Admin: 05/10/24 20:13 Dose: Not Given Documented By: SANDRA Non-Admin Reason: Physician Held Med Metoprolol Tartrate (Metoprolol Tartrate 50 Mg Tablet) 50 mg PO DAILY [facility]; Protocol Last Admin: 05/11/24 09:07 Dose: 50 mg Documented By: YA Ondansetron HCl (Ondansetron Hcl 4 Mg/2 Ml Vial) 4 mg IVPUSH Q8H PRN PRN Reason: Nausea and Vomiting Rivaroxaban (Rivaroxaban 15 Mg Tablet) 15 mg PO DAILY@1700 [facility] Last Admin: 05/10/24 17:19 Dose: 15 mg Documented By: JOON Sodium Chloride (0.9 % Sodium Chloride Flush 3 Ml Syringe) 3 ml IVFLUSH QSHIFT [facility] Last Admin: 05/11/24 09:11 Dose: Not Given Documented By: YA Non-Admin Reason: Med Not Available Vitamin D (Cholecalciferol (Vitamin D3) 25 Mcg Tablet) 25 mcg PO DAILY [facility] Last Admin: 05/11/24 09:07 Dose: 25 mcg Documented By: YA Labs 05/11/24 04:46 05/11/24 04:46 Labs: Laboratory Results - last 24 hr 05/10/24 05/11/24 09:44 04:46 MCV 92.8 MCH 28.4 MCHC 30.6 L RDW 14.8 Plt Count 113 L MPV 11.9 Absolute Nucleated RBC 0.000 Nucleated RBC % (auto) 0.0 Anion Gap 17 Estim Creat Clear Calc 40.0 Estimated GFR 29 Random Glucose 112 Calcium 9.4 Magnesium 2.3 Troponin I High Sens 165.1 H* Assessment and Plan (1) CHF (congestive heart failure): Status: Acute Plan d2 78yo F with HFpEF [50-55% March 2024], TAVR 2018 now with degeneration requiring replacement at [facility], recently diagnosed liver lesions pending biopsy at [facility] 05/14, pAF s/p ablation x3 on rivaroxaban, HLD, HTN, and GERD presenting with burning chest pain and progressive dyspnea/edema 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 admitted for CHF exacerbation + VIOLET acute/chronic HFpEF - continue IV furosemide 40 mg bid [yesterday's evening dose held due to soft BP]; monitor lytes/I+O/BNP; Cardiology following; hs Tn-I flat 161.2->165.1; continue metoprolol tartrate VIOLET - likely cardiorenal; improving with diuresis; holding lisinopril; continue to monitor; baseline SCr 0.8 (03/31/14 per [facility]) pAF - continue metoprolol tartrate + rivaroxaban aortic stenosis s/p TAVR with degeneration of prosthetic valve - replacement at [facility] on hold pending outcome of liver biopsy GERD - famotidine liver lesions of uncertain behavior - scheduled for biopsy at [facility] 05/14/24 VTE ppx - rivaroxaban dispo - eventual home with [facility] In my clinical judgment, the patient requires continued inpatient hospitalization for the following reasons: IV diuresis th Cardiology. Total time managing care of this patient today: 45 minutes. Quality Stroke Does the patient have a stroke diagnosis?: No VTE Prior VTE?: No VTE Risk Level:: Medical - moderate - high VTE Device Contraindication: Treatment Not Indicated VTE Drug Contraindication: N/A - Med Ordered
--- NOTE | 2024-05-11 09:40 | PC.NURSE ---
cleansed of incontinent urine. new dressing on buttocks wound (small, stage 2). pt is SOB with bed mobility. tachipnic but recovers with HOB up. denies CP. pedal edema noted. states is worse than normal. axox3. awaits bed on floor.
--- NOTE | 2024-05-11 10:26 | PC.NURSE ---
bp's are trending lower. MD is aware and patient is asymptomatic. family at bedside.
--- NOTE | 2024-05-11 10:59 | PC.NURSE ---
continues to be asymptomatic with low bp's
--- NOTE | 2024-05-11 12:38 | P.PNCA_ITS ---
Subjective Subjective Date of Service: 05/11/24 Interval history: seen and examined at bedside. Little better and on supplemental oxygen. BP low this AM and her Lasix was held. Physical Exam Vital Signs: Last Vital Signs Temp 98.2 F 05/10/24 19:54 Pulse 84 05/11/24 12:00 Resp 20 05/11/24 12:00 BP 90/54 L 05/11/24 12:00 Pulse Ox 94 05/11/24 12:00 O2 Del Method Room Air 05/11/24 12:00 O2 Flow Rate 2 05/11/24 11:58 BMI result Body Mass Index 46.1 GENERAL APPEARANCE: On supplemental oxygen NECK: no carotid bruit, + jugular venous distention. SKIN: no suspicious lesions, warm and dry. HEART: Ejection systolic murmur no 2nd heart sound, regular rate and rhythm. LUNGS: Crackles at bases. ABDOMEN: soft, nontender. EXTREMITIES: 1 to 2+ edema. PERIPHERAL PULSES: equal. NEUROLOGIC: No gross deficits, AAO X 3 Objective Labs and Meds 05/11/24 04:46 05/11/24 04:46 Lab results: Laboratory Results - last 24 hr 05/11/24 04:46 WBC 11.7 H RBC 3.45 L Hgb 9.8 L Hct 32.0 L MCV 92.8 MCH 28.4 MCHC 30.6 L RDW 14.8 Plt Count 113 L MPV 11.9 Absolute Nucleated RBC 0.000 Nucleated RBC % (auto) 0.0 Sodium 142 Potassium 4.9 Chloride 108 Carbon Dioxide 22 Anion Gap 17 BUN 59 H Creatinine 1.73 H Estim Creat Clear Calc 40.0 Estimated GFR 29 Random Glucose 112 Calcium 9.4 Magnesium 2.3 Progress Note: A&P Assessment and plan (1) Prosthetic aortic valve stenosis: Status: Acute (2) CHF (congestive heart failure): Status: Acute Plan 78-year-old female wtih previous TAVR in 2018 presenting for CHF and severe prosthetic valve stenosis. She had some chest discomfort which has improved. She had VIOLET and is clinically volume overloaded. LV is mildly dilated with EF 45 to 50% and critical valve stenosis with ROSE 0.6 and MG 71 mm Hg. Blood pressures are soft today. She had diuretics held today. We are going to hold the metoprolol. She is already off lisinopril. Hold Xarelto going forward. I discussed with the patient and the family in detail that she has severe prosthetic valve stenosis. We are somewhat struggling now with blood pressures to diurese her and she clinically is quite overloaded currently. The options are to consider transfer to a tertiary care center with use of inotropes/pressors with diuresis versus balloon pump and diuresis. Also she is quite symptomatic now with changes the situation because when she saw Cardiology at [facility] she did not have any symptoms and they were planning to do liver biopsies for the lesions picked up during TAVR workup. She is also describing that they may have to lacerate her Medtronic valve which means she needs BASILICA. I told them that I would favor her being transferred to [facility] rather than locally in [facility] because she is well known in [facility] and already had the TAVR workup there. I will reach out to the transfer line at [facility]. Thank you for allowing me to participate in the care of your patient. Please feel free to contact me if you have any questions. Time Spent With Patient Time: Total time managing care of this patient today ____ minutes. Progress Note: Quality Stroke Does the patient have a stroke diagnosis?: No Procedures Date of Service Date of Service: 05/11/24
--- NOTE | 2024-05-11 13:30 | PC.NURSE ---
urinated in the bed. tolerated laying flat but was difficult. pt thinks pedal edema is improving. SOB resolved when HOB back up
--- NOTE | 2024-05-11 14:42 | PM.DS ---
DS: Providers Provider Date of Service: 05/11/24 Date of admission: 05/10/24 12:32 Date of discharge: 05/11/24 Primary care physician: Salvador Dixon PA-C Consults: 05/10/24 08:54 Consult to Cardiology Stat Consulting Provider: [facility] [place] [facility] Reason for consultation: chest pain, edema Has provider been notified: Yes DS: Transfer Hospital Acceptance Reason for Transfer: subspecialty cardiac care Name of Facility: [facility] DS: Diagnosis Discharge Diagnosis (1) Prosthetic aortic valve stenosis: Status: Acute (2) CHF (congestive heart failure): Status: Acute (3) Acute on chronic heart failure with preserved ejection fraction (HFpEF): Status: Acute (4) Cardiorenal syndrome: Status: Acute (5) Valvular cardiomyopathy: Status: Acute (6) VIOLET (acute kidney injury): Status: Acute (7) Morbid obesity: Status: Acute DS: Summary Hospital Course Hospital Course: From the history and physical by the admitting hospitalist, SUYAPA Rabago, 05/10/24: Pt is a 78-year-old female with a PMH significant for?HFpEF EF 50-55%, TAVR 5 years ago at [facility] [sic] now failing, paroxysmal AFib s/p ablation x3 on Xarelto, HLD, HTN, and GERD who presents to the ED for evaluation of substernal burning chest pain that woker her from sleep this morning. Pt reports she has been experiencing symptoms intermittently for the past week, relieved by Pepto-Bismol. Patient describes the pain has sharp and burning in nature, substernal, and nonradiating. Denies chest pressure or palpitations. No nausea, vomiting, or abdominal pain. Patient also reports has been experiencing progressive shortness a breath and lower leg edema since December of this year. Normally ambulates in her home without assistance though uses a cane when she goes out. However patient reports most recent time she went out she needed to be transported with a wheelchair. Recently her industrial designer Dr. Borja increased her Lasix from 40 mg daily to 40 mg b.i.d., but patient has received no relief this medication change. Also endorses dry cough. Of note, patient is currently undergoing workup at [facility] for TAVR replacement. Apparently routine CT scan of abdomen and pelvis found liver lesions, and patient is set to receive a liver biopsy at [facility] on Sunday of next week. Cardiology is requesting liver lesion biopsy and workup prior to scheduling TAVR. Per patient, last echo was done in March and showed EF of 50-55%. In the ED pt with elevated heart rate of 91, and soft BP as low as 106/51. Labs were significant for leukocytosis 13.2, H&H 10.9/34.6, BUN 61, creatinine 2.28, initial troponin 161.2 with repeat flat and 165.1, and BNP 2801. Tested negative for flu, COVID, RSV. CXR showed mild peribronchial opacities in bilateral upper lungs possibly inflammatory versus infectious process as well as small left pleural effusion. Initial EKG demonstrated sinus rhythm with occasional PVCs and slight ST depressions in lateral and inferior leads. Repeat EKG with improved ST depressions. Pt was treated with ondansetron, fentanyl, Protonix, and furosemide. Pt will be admitted to the hospital for treatment and further evaluation of acute HFpEF exacerbation. Ms Deshpande is a 78yo F with HFpEF [50-55% March 2024], TAVR 2018 now with degeneration/stenosis requiring eventual replacement at [facility], recently diagnosed liver lesions pending biopsy at [facility] 05/14, pAF s/p ablation x3 on rivaroxaban, HLD, HTN, and GERD. She presented with burning chest pain and progressive dyspnea/edema despite her industrial designer doubling her furosemide frequency. She was admitted for acute decompensated HF and VIOLET thought to be cardiorenal syndrome. She was started on IV furosemide 40 mg bid. She diuresed -1020 mL net negative. Serum creatinine came down to 1.73. Lisinopril was held due to VIOLET and soft BP as low as 72/49, though with no symptoms of lightheadedness or dizziness. Metoprolol was also held. Dr Michael Prabhakar from Cardiology was consulted and recommended transfer to [facility]. At the time of transfer, her BP had recovered to 97/57. Time Attestation Discharge Coordination Time (in mins): 55 Quality: Safe Use of Opioids Does Pt have an Active Cancer Diagnosis on the Problem List?: No Quality: Stroke Does the patient have a stroke diagnosis?: No Physical Exam Vital Signs: Vital Signs: Last Vital Signs Temp 98.2 F 05/11/24 14:22 Pulse 89 05/11/24 14:35 Resp 18 05/11/24 14:35 BP 97/57 L 05/11/24 14:35 Pulse Ox 98 05/11/24 14:35 O2 Del Method Nasal Cannula 05/11/24 14:35 O2 Flow Rate 2 05/11/24 14:35 BMI result Body Mass Index 46.1 Gen: in no acute distress HEENT: sclera anicteric, moist mucus membranes Neck: supple Lungs: diminished air entry at bases bilaterally Heart: regular, 2/6 murmur at base Abd: soft, non-tender, non-distended Ext: no edema Skin: warm/well-perfused Neuro: alert and oriented x3, no focal findings Psych: appropriate affect DS: Data Data Completed and Pending Completed studies during hospitalization [Text1]: Laboratory Results WBC 11.7 X10*3/uL (4.8-10.8) H 05/11/24 04:46 RBC 3.45 X10*6/uL (4.20-5.50) L 05/11/24 04:46 Hgb 9.8 g/dl (12.0-16.0) L 05/11/24 04:46 Hct 32.0 % (37.0-47.0) L 05/11/24 04:46 MCV 92.8 fL (80.0-98.0) 05/11/24 04:46 MCH 28.4 pg (27.0-33.0) 05/11/24 04:46 MCHC 30.6 g/dl (31.0-35.0) L 05/11/24 04:46 RDW 14.8 % (11.0-16.0) 05/11/24 04:46 Plt Count 113 X10*3/uL (160-400) L 05/11/24 04:46 MPV 11.9 fL (9.4-12.3) 05/11/24 04:46 Immature Gran % (Auto) 0.4 % (0.0-0.4) 05/10/24 07:45 Neut % (Auto) 74.3 % (45-73) H 05/10/24 07:45 Lymph % (Auto) 16.6 % (20-40) L 05/10/24 07:45 [facility] % (Auto) 8.1 % (2-11) 05/10/24 07:45 Eos % (Auto) 0.3 % (0-4) 05/10/24 07:45 Baso % (Auto) 0.3 % (0-2) 05/10/24 07:45 Lymph # (Auto) 2.2 X10*3/uL (1.2-4.9) 05/10/24 07:45 [facility] # (Auto) 1.1 X10*3/uL (0.1-1.2) 05/10/24 07:45 Eos # (Auto) 0.0 X10*3/uL (0.0-0.4) 05/10/24 07:45 Baso # (Auto) 0.0 X10*3/uL (0.0-0.2) 05/10/24 07:45 Abs Immat Gran (auto) 0.05 X10*3/uL (0.00-0.03) H 05/10/24 07:45 Absolute Neuts (auto) 9.8 x10*3/uL (2.0-8.3) H 05/10/24 07:45 Absolute Nucleated RBC 0.000 X10*3/uL (0.0-0.012) 05/11/24 04:46 Nucleated RBC % (auto) 0.0 /100WBC (0.0-0.2) 05/11/24 04:46 PT 22.9 SEC (11.1-13.3) H 05/10/24 07:45 INR 1.9 (0.9-1.1) H 05/10/24 07:45 Sodium 142 mmol/L (135-145) 05/11/24 04:46 Potassium 4.9 mmol/L (3.3-5.1) 05/11/24 04:46 Chloride 108 mmol/L (96-108) 05/11/24 04:46 Carbon Dioxide 22 mmol/L (22-29) 05/11/24 04:46 Anion Gap 17 (12-20) 05/11/24 04:46 BUN 59 mg/dL (9-16) H 05/11/24 04:46 Creatinine 1.73 mg/dL (0.5-1.4) H 05/11/24 04:46 Estim Creat Clear Calc 40.0 05/11/24 04:46 Estimated GFR 29 05/11/24 04:46 Random Glucose 112 mg/dL (60-115) 05/11/24 04:46 Calcium 9.4 mg/dL (8.4-10.2) 05/11/24 04:46 Magnesium 2.3 mg/dL (1.6-2.6) 05/11/24 04:46 Total Bilirubin 0.7 mg/dL (0.0-1.0) 05/10/24 07:45 Direct Bilirubin 0.2 mg/dL (0.0-0.5) 05/10/24 07:45 AST 29 U/L (5-31) 05/10/24 07:45 ALT 11 U/L (0-31) 05/10/24 07:45 Alkaline Phosphatase 114 U/L (39-117) 05/10/24 07:45 Troponin I High Sens 165.1 ng/L (<3.5-17.0) H* 05/10/24 09:44 B-Natriuretic Peptide 2801 pg/mL (<100) H 05/10/24 07:45 Total Protein 6.9 g/dL (6.5-8.0) 05/10/24 07:45 Albumin 3.7 g/dL (3.5-5.0) 05/10/24 07:45 Lipase 20 U/L (8-78) 05/10/24 07:45 Influenza Type A (PCR) NEGATIVE (Negative) 05/10/24 07:54 Influenza Type B (PCR) NEGATIVE (Negative) 05/10/24 07:54 RSV RNA Qual (PCR) NEGATIVE (Negative) 05/10/24 07:54 SARS-CoV-2 RNA (RT-PCR) NEGATIVE (Negative) 05/10/24 07:54 Impressions Chest X-Ray 05/10/24 07:36 IMPRESSION: Mild peribronchial opacities in bilateral upper lungs could reflect inflammatory infectious process. Possible small left pleural effusion. Electronically signed by: Cameron Yip MD 05/10/2024 08:17 AM EDT Labs on day of discharge: Laboratory Results - last 24 hr 05/11/24 04:46 WBC 11.7 H RBC 3.45 L Hgb 9.8 L Hct 32.0 L MCV 92.8 MCH 28.4 MCHC 30.6 L RDW 14.8 Plt Count 113 L MPV 11.9 Absolute Nucleated RBC 0.000 Nucleated RBC % (auto) 0.0 Sodium 142 Potassium 4.9 Chloride 108 Carbon Dioxide 22 Anion Gap 17 BUN 59 H Creatinine 1.73 H Estim Creat Clear Calc 40.0 Estimated GFR 29 Random Glucose 112 Calcium 9.4 Magnesium 2.3 Discharge Plan Discharge Anticipated Discharge Date/Time: 05/11/24 14:39 Patient Disposition: [facility] Discharge Diagnosis: acute/chronic heart failure; 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; cardiorenal syndrome Referrals: Salvador Dixon PA-C [Primary Care Provider] - 1 Week Discharge Medications: Continued atorvastatin 40 mg tablet 40 mg PO DAILY furosemide 20 mg tablet 40 mg PO BID lisinopril 40 mg tablet 40 mg PO DAILY ondansetron 4 mg tablet,disintegrating 4 mg PO Q8H PRN (Reason: nausea) metoprolol tartrate 25 mg tablet 50 mg PO DAILY metoprolol tartrate 25 mg tablet 25 mg PO BEDTIME Xarelto 20 mg tablet 20 mg PO DAILY@1700 acetaminophen [Tylenol] 325 mg Tablet 650 mg PO Q6H PRN (Reason: Pain) cyanocobalamin (vitamin B-12) 1,000 mcg Tablet 1,000 mcg PO DAILY cholecalciferol (vitamin D3) [Vitamin D3] 25 mcg (1,000 unit) Tablet 25 mcg PO DAILY PreserVision AREDS-2 250-90-40-1 mg Capsule 1 tab PO BID Pepto-Bismol Max St 525 mg/15 mL Suspension 525 mg PO Q30M PRN (Reason: Stomach Upset) Rx Instructions: do not exceed 8 doses in a 24 hour period Discharge Orders: Discharge Order (Routine); Ordered 05/11/24 Ordered By: Ruben Hinkle Diet: Low salt diet Activity on Discharge: As tolerated Stand Alone Forms: Patient Portal Discharge page Print Language: Malawian Care Plan Goals: cardiac health Health Concerns: acute/chronic heart failure; 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
--- NOTE | 2024-05-11 14:48 | MHC.CM.PN ---
PT BEING DCD TO [facility] AND [facility]
--- NOTE | 2024-05-11 17:42 | PC.NURSE ---
pt requesting pepcid for abd dyscomfrt. NAD. denies CP. no changes on monitor. awaiting transfer to [facility].
[2024-05-11] MEDS: Melatonin 3 MG TABLET 6 MG PO (22:02)
--- NOTE | 2024-05-11 22:06 | PC.NURSE ---
ED Stationary [employer] Operators Barbi called [facility] trasnfer line requesting update on bed availability, no bed available yet, they will call here once bed opens up, patient updated on current bed waiting situation, will update patient if bed becomes available.
[2024-05-12] VITALS (14 sets, daily range): BP systolic 92–131; BP diastolic 57–94; PULSE 91–102; RESP 14–23; TEMP 36.3–37.2; O2SAT 95–100; BMI 46.5
[2024-05-12] MEDS: 0.9 % Sodium Chloride Flush 3 ML SYRINGE IVFLUSH ×2 (01:28→20:44)
--- NOTE | 2024-05-12 01:35 | PC.NURSE ---
pt is axox4 family member at bedside. nad. awaiting bed assignment to [facility]. call restrepo within reach. 4x siderails in hospital bed up per pt request pt did not want rn to put one siderail down.
--- NOTE | 2024-05-12 02:44 | PC.NURSE ---
spoke to Tammie at [facility] they called for an update on pt/vitals/labs. stated bed won't be available until AM after discharges.
[2024-05-12 05:45] LABS: Anion Gap 14 (12-20); B Type Natriuretic Peptide 2939 pg/mL (<100); Blood Urea Nitrogen 57 mg/dL (9-16); Calcium 9.5 mg/dL (8.4-10.2); Carbon Dioxide 24 mmol/L (22-29); Chloride 106 mmol/L (96-108); Creatinine Clr Calc Pharmacy 44.7; Estimated Glomerular Filt Rate 32; Glucose Random 109 mg/dL (60-115); Magnesium 2.4 mg/dL (1.6-2.6); Potassium 4.8 mmol/L (3.3-5.1); Sodium 139 mmol/L (135-145)
--- NOTE | 2024-05-12 09:42 | PC.NURSE ---
Pt.'s family approached this RN to ask about pt.'s transfer to [facility]. This RN explained to pt. that the transfer is coordinated for this morning, and that it appears it's an ER-to-ER transfer. Family is very upset and requesting to speak with MD, stating that they requested for her to not be transferred unless it was ER to an inpatient room.
--- NOTE | 2024-05-12 09:48 | PC.NURSE ---
Carolina Batista MD is aware of family's request and states will be down in a few minutes to speak with them.
[2024-05-12] MEDS: Cyanocobalamin (Vitamin B-12) 1,000 MCG TABLET 1000 MCG PO (09:55)
[2024-05-12] MEDS: Cholecalciferol (Vitamin D3) 25 MCG TABLET PO (09:55)
[2024-05-12] MEDS: Atorvastatin Calcium 40 MG TABLET PO (09:55)
[2024-05-12] MEDS: Famotidine 20 MG TABLET PO ×2 (09:55→20:41)
--- NOTE | 2024-05-12 11:46 | P.EN_ITS ---
Event Note Date of Service: 05/12/24 Event Note: Day Team follow up S Pt seen and examined reports sob, denies cp O vitals -- last documented and stable s1s2 dim sounds abd soft nt a/p 78 yo with HFpEF, TAVR, pAF and multiple others admitted for chf being transferred to [facility] -- has been accepted, await bed assignment continue current care otherwise Time Spent With Patient Time: Total time managing care of this patient today ____ minutes.
--- NOTE | 2024-05-12 13:09 | PC.NURSE ---
This RN called to pt.'s room. Pt. in tripod position, visibly having difficulty breathing. Pt. becoming increasingly anxious. SPO2 98%. This RN reached out to MD Lester, as Lasix was held yesterday and never reordered.
[2024-05-12] MEDS: Furosemide 40 MG/4 ML VIAL IVPUSH ×2 (13:27→19:06)
--- NOTE | 2024-05-12 13:27 | PC.NURSE ---
Pt. medicated with Lasix per MAR.
--- NOTE | 2024-05-12 15:01 | PC.NURSE ---
Called and spoke with PELON Perez in the [facility] transfer center for an update. Still waiting for a bed, [facility] will call when a bed becomes available.
--- NOTE | 2024-05-12 19:08 | PC.NURSE ---
this rn assumed care of pt, pt alert and oriented. pt resting in hospital stretcher, no acute distress noted. vss. pt medicated per nov.
[2024-05-12] MEDS: Morphine Sulfate 2 MG/ML CARTRIDGE IVPUSH (20:09)
--- NOTE | 2024-05-12 23:22 | PC.NURSE ---
Addendum entered by Rachel Gr RN 05/13/24 06:25: Per respiratory, pt refused cpap when brought to room. 05:00 hour: Patient had 5-beat run of vtach before returning to 90's with PVCs. Pt asymptomatic. VSS. Dr. Dickey notified. Original Note: Patient admitted to s4 from ED. Patient here for acute CHF exacerbation, health status also notable for severe prosthetic valve stenosis per cardiology consult; patient is currently awaiting transfer to [facility] in [place] for this once a bed becomes available. Pt is A&Ox4. SR with frequent PVCs which pt reports she has a history of. On 2L nc on arrival (pt denies o2 use at home). +Significant LEDESMA with bibasilar crackles audible, though pt diuresis had been held earlier due to soft BPs. Pt reported edema to BLE is chronic but much improved in her feet compared to recent. +dp pulses, +cms. Prn morphine for respiratory distress, +effect. Pt placed on continuous spo2 monitoring with spo2 maintained. Pt reports she has a cpap at home, stated to quality analyst/technical writer she would be agreeable to cpap here tonight if ordered by MD. Covering Dr. Dickey notified and cpap ordered; respiratory notified and requested cpap placement. Purewick placed for baseline urge incontinence and LEDESMA. Intact and functioning. Pt denies pain. Bed bath given and pt repositioned. Bilateral buttock stage II (single small, less than dime-sized open areas to each buttock noted on admission. Pt reported to this quality analyst/technical writer these are from her recliner she sleeps in at home. Barrier cream and foam applied. Bed alarm on and safety measures, call restrepo in place. 23:00: patient was agreeable to vitals at this time but stated she did not want to be woken up for vitals again until at least five am. notified.
[2024-05-13 05:27] VITALS: BP 109/62; PULSE 91; RESP 20; TEMP 36.4; O2SAT 100
[2024-05-13 06:55] LABS: Anion Gap 17 (12-20); Blood Urea Nitrogen 47 mg/dL (9-16); Calcium 9.9 mg/dL (8.4-10.2); Carbon Dioxide 25 mmol/L (22-29); Chloride 104 mmol/L (96-108); Creatinine Clr Calc Pharmacy 52.8; Estimated Glomerular Filt Rate 39; Glucose Random 109 mg/dL (60-115); Potassium 4.7 mmol/L (3.3-5.1); Sodium 141 mmol/L (135-145)
[2024-05-13 06:58] VITALS: BP 106/61; PULSE 97; RESP 20; TEMP 36.6; O2SAT 100
[2024-05-13 07:01] LABS: B Type Natriuretic Peptide 3204 pg/mL (<100)
[2024-05-13 07:41] LABS: Magnesium 2.4 mg/dL (1.6-2.6)
--- NOTE | 2024-05-13 07:51 | MHC.CM.PN ---
Patient will transfer to an acute care hospital[facility].
[2024-05-13] MEDS: Atorvastatin Calcium 40 MG TABLET PO (08:44)
[2024-05-13] MEDS: Cholecalciferol (Vitamin D3) 25 MCG TABLET PO (08:44)
[2024-05-13] MEDS: Cyanocobalamin (Vitamin B-12) 1,000 MCG TABLET 1000 MCG PO (08:44)
[2024-05-13] MEDS: Famotidine 20 MG TABLET PO (08:44)
[2024-05-13] MEDS: 0.9 % Sodium Chloride Flush 3 ML SYRINGE IVFLUSH ×2 (08:46→17:43)
[2024-05-13 08:57] VITALS: BP 103/74
[2024-05-13] MEDS: Furosemide 20 MG/2 ML VIAL IVPUSH ×2 (08:57→12:02)
--- NOTE | 2024-05-13 09:45 | P.PNIM_ITS ---
Subjective Subjective Date of Service: 05/13/24 Interval History: seen and examined feels about the same with sob on minimal exertion (ie eating) denies chest pain reports improved LE edema Physical Exam 2 Vital Signs: Vital Signs: Last Vital Signs Temp 97.8 F 05/13/24 06:58 Pulse 97 05/13/24 06:58 Resp 20 05/13/24 06:58 BP 103/74 05/13/24 08:57 Pulse Ox 100 05/13/24 06:58 O2 Del Method Nasal Cannula 05/13/24 06:58 O2 Flow Rate 2 05/13/24 06:58 BMI result Body Mass Index 46.5 Const: Other: General - no acute distress, appears comfortable at rest; +tachypnea with minimal exertion Cardiovascular - s1s2; +murmur Lungs - dim sounds Abdomen - soft, nontender, no rebound or guarding Extremities - improving pedal edema; still had +2 otherwise Neuro - awake and alert, no focal deficits Objective Data Active Medications Acetaminophen (Acetaminophen 325 Mg Tablet) 650 mg PO Q6H PRN PRN Reason: Pain, Mild (Pain Scale 1-3), fever or headache Last Admin: 05/11/24 02:58 Dose: 650 mg Documented By: SANDRA Atorvastatin Calcium (Atorvastatin Calcium 40 Mg Tablet) 40 mg PO DAILY [facility] Last Admin: 05/13/24 08:44 Dose: 40 mg Documented By: GEORGE Benzonatate (Benzonatate 100 Mg Capsule) 100 mg PO TID PRN PRN Reason: Cough Calcium Carbonate (Calcium Carbonate 750 Mg Tab.Chew) 750 mg PO Q4H PRN PRN Reason: Heartburn Cyanocobalamin (Cyanocobalamin (Vitamin B-12) 1,000 Mcg Tablet) 1,000 mcg PO DAILY [facility] Last Admin: 05/13/24 08:44 Dose: 1,000 mcg Documented By: GEORGE Famotidine (Famotidine 20 Mg Tablet) 20 mg PO BID [facility] Last Admin: 05/13/24 08:44 Dose: 20 mg Documented By: GEORGE Furosemide (Furosemide 20 Mg/2 Ml Vial) 20 mg IVPUSH BID@0900,1800 [facility]; Protocol Last Admin: 05/13/24 08:57 Dose: 20 mg Documented By: GEORGE Magnesium Hydroxide (Milk Of Magnesia 30 Ml Oral.Susp) 30 ml PO DAILY PRN PRN Reason: Constipation Melatonin (Melatonin 3 Mg Tablet) 6 mg PO BEDTIME PRN PRN Reason: Insomnia Last Admin: 05/11/24 22:02 Dose: 6 mg Documented By: JOON Metoprolol Tartrate (Metoprolol Tartrate 25 Mg Tablet) 25 mg PO BEDTIME [facility]; Protocol Last Admin: 05/10/24 20:13 Dose: Not Given Documented By: SANDRA Non-Admin Reason: Physician Held Med Metoprolol Tartrate (Metoprolol Tartrate 50 Mg Tablet) 50 mg PO DAILY [facility]; Protocol Last Admin: 05/11/24 09:07 Dose: 50 mg Documented By: YA Morphine Sulfate (Morphine Sulfate 2 Mg/Ml Cartridge) 2 mg IVPUSH Q4H PRN; Protocol PRN Reason: respiratory distress Last Admin: 05/12/24 20:09 Dose: 2 mg Documented By: MYRNA Ondansetron HCl (Ondansetron Hcl 4 Mg/2 Ml Vial) 4 mg IVPUSH Q8H PRN PRN Reason: Nausea and Vomiting Rivaroxaban (Rivaroxaban 15 Mg Tablet) 15 mg PO DAILY@1700 [facility] Last Admin: 05/10/24 17:19 Dose: 15 mg Documented By: JOON Sodium Chloride (0.9 % Sodium Chloride Flush 3 Ml Syringe) 3 ml IVFLUSH QSHIFT [facility] Last Admin: 05/13/24 08:46 Dose: 3 ml Documented By: BROJusta Vitamin D (Cholecalciferol (Vitamin D3) 25 Mcg Tablet) 25 mcg PO DAILY [facility] Last Admin: 05/13/24 08:44 Dose: 25 mcg Documented By: BROJusta Labs 05/11/24 04:46 05/13/24 06:06 Labs: Laboratory Results - last 24 hr 05/13/24 06:06 Anion Gap 17 Estim Creat Clear Calc 52.8 Estimated GFR 39 Random Glucose 109 Calcium 9.9 Magnesium 2.4 B-Natriuretic Peptide 3204 H Assessment and Plan (1) Valvular cardiomyopathy: Status: Acute (2) Cardiorenal syndrome: Status: Acute Plan 78yo F with HFpEF [50-55% March 2024], TAVR 2018 now with degeneration requiring replacement at [facility], recently diagnosed liver lesions pending biopsy at [facility] 05/14, pAF s/p ablation x3 on rivaroxaban, HLD, HTN, and GERD presenting with burning chest pain and progressive dyspnea/edema despite her scouring pads supervisor doubling her furosemide frequency admitted for CHF exacerbation + VIOLET acute/chronic HFpEF echo showing EF 45-50% this admit BP intermittently low, prohibitive to diuresis -- received 40 yesterday, will decrease to 20 today iv NSVT x 1 will start low dose bb VIOLET - likely cardiorenal; improving with diuresis; holding lisinopril; continue to monitor; baseline SCr 0.8 (03/31/14 per [facility] records) pAF metoprolol on hold initally due to low bp; xarelto on hold due to planned biopsy aortic stenosis s/p TAVR with degeneration of prosthetic valve - replacement at [facility] on hold pending outcome of liver biopsy GERD - famotidine liver lesions of uncertain behavior - scheduled for biopsy at [facility] 05/14/24 VTE ppx mechanical dispo transfer to [facility] Quality Stroke Does the patient have a stroke diagnosis?: No VTE Prior VTE?: No VTE Risk Level:: Medical - moderate - high VTE Device Contraindication: Treatment Not Indicated VTE Drug Contraindication: N/A - Med Ordered
[2024-05-13 10:58] VITALS: BP 124/67; PULSE 98; RESP 20; TEMP 36.4; O2SAT 98
[2024-05-13 12:02] VITALS: BP 124/67
[2024-05-13] MEDS: Morphine Sulfate 2 MG/ML CARTRIDGE IVPUSH (12:03)
[2024-05-13 13:16] VITALS: BMI 46.5
--- NOTE | 2024-05-13 13:27 | MHC.CLN ---
NUTRITION DIET=CARDIAC, 2 GRAM SODIUM. REPORTED 9.6% WEIGHT LOSS X 2 MONTHS. NO PRIOR WEIGHT HX VIEWED. CURRENTLY WITH 2+ BILATERAL PITTING EDEMA. SKIN WITH STAGE II PRESSURE INJURY TO BILATERAL BUTTOCKS. CONSIDER PROTEIN SUPPLEMENT IF INTAKE LESS THAN 50% AT MEALS. FOLLOW FOR INTAKE AND SKIN INTEGRITY. SEE CLINICAL NUTRITION ASSESSMENT 05/13/24.
[2024-05-13 15:23] VITALS: BP 102/57; PULSE 96; RESP 20; TEMP 36.8; O2SAT 99
[2024-05-13] MEDS: Metoprolol Tartrate 12.5 MG HALFTAB PO (15:42)
[2024-05-13] MEDS: ondansetron HCL 4 MG/2 ML VIAL IVPUSH (17:44)
--- NOTE | 2024-05-13 18:27 | PC.NURSE ---
Message received to call [facility] at [phone], called the number and spoke with Vamsi RN, report given, per Vamsi patient is going to [address] room 803
== END 2024-05-13 19:35 | disposition short-term general hospital (02) | DRG 291 ==
LOC: HO.ED 10:35 → HO.EDOVER 12:42 → HO.IMC 05-12 17:11
PROVIDERS: Family Medicine; Internal Medicine; Admitting Provider Student in an Organized Health Care Education/Training Program; Emergency Provider Emergency Medicine; PCP Physician Assistant Surgical; Visit Provider Family Medicine
DX: I11.0 Hypertensive heart disease with heart failure (principal); I50.23 Acute on chronic systolic (congestive) heart failure; N17.9 Acute kidney failure, unspecified; T82.857A Stenosis of other cardiac prosthetic devices, implants and grafts, initial encounter; I42.9 Cardiomyopathy, unspecified; Y71.2 Prosthetic and other implants, materials and accessory cardiovascular devices associated with adverse incidents; E78.5 Hyperlipidemia, unspecified; I48.0 Paroxysmal atrial fibrillation; Z66 Do not resuscitate; K76.9 Liver disease, unspecified; Z79.01 Long term (current) use of anticoagulants; Z79.899 Other long term (current) drug therapy
CPT/HCPCS: 0241U; 36415; 71045; 80048; 80076; 83690; 83735; 83880; 84484; 85025; 85027; 85610; 93005; 93306; 99285; J1940; J2270; J2405; J3010; Q9957

== ENCOUNTER → 2024-05-10 08:03 | Outpatient (BNV) | payer MEDICARE, SELFPAY | PROVIDERS: Emergency Provider Emergency Medicine; PCP Physician Assistant Surgical; Visit Provider Internal Medicine Cardiovascular Disease | DX: T82.857A Stenosis of other cardiac prosthetic devices, implants and grafts, initial encounter (principal); I50.23 Acute on chronic systolic (congestive) heart failure | CPT/HCPCS: 93306; 99223; 99233 ==

== ENCOUNTER → 2024-05-10 12:32 | Outpatient (BNV) | payer MEDICARE, SELFPAY | PROVIDERS: Admitting Provider Student in an Organized Health Care Education/Training Program; Emergency Provider Emergency Medicine; PCP Physician Assistant Surgical; Visit Provider Student in an Organized Health Care Education/Training Program | DX: T82.857A Stenosis of other cardiac prosthetic devices, implants and grafts, initial encounter (principal); I13.10 Hypertensive heart and chronic kidney disease without heart failure, with stage 1 through stage 4 chronic kidney disease, or unspecified chronic kidney disease; I50.23 Acute on chronic systolic (congestive) heart failure; I50.33 Acute on chronic diastolic (congestive) heart failure; I42.8 Other cardiomyopathies; N17.9 Acute kidney failure, unspecified; E66.01 Morbid (severe) obesity due to excess calories | CPT/HCPCS: 99223; 99232; 99239; 99499 ==